=== PATIENT | male | born 1980 | race Caucasian/White ===

== ENCOUNTER 2018-04-02 18:23 | Inpatient (IN) | payer SELFPAY ==
[~2018-04-02] VITALS: Ht 177.8 cm; Wt 88.5 kg
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
[2018-04-02] MEDS ORDERED: HYDROCODONE/APAP 10MG-325MG TAB PO ONE (18:45)
[2018-04-02] MEDS ORDERED: KETOROLAC TROMETHAMINE 30 MG/ML VIAL IV STA (18:45)
[2018-04-02] MEDS ORDERED: ONDANSETRON HCL INJ 2 MG/ML VIAL IV STA (19:43)
[2018-04-02] MEDS ORDERED: CLINDAMYCIN PHOS 900MG/ D5W 50 50 ML IV STA (19:43)
[2018-04-02] MEDS ORDERED: HYDROMORPHONE 2MG/ML INJ IV ONE (19:45)
[2018-04-02] MEDS ORDERED: ONDANSETRON HCL INJ 2 MG/ML VIAL IV PRN (20:00)
[2018-04-02 20:10] LABS: BASOPHILS # (AUTO) 0.1 (0.0-0.1); BASOPHILS % 0.3 % (0.0-1.0); EOSINOPHILS # (AUTO) 0.3 (0.0-0.4); EOSINOPHILS % 1.3 % (0.0-6.0); HEMATOCRIT 41.3 % (38.2-49.6); HEMOGLOBIN 14.4 g/dL (14.0-18.0); LYMPHOCYTES # (AUTO) 2.3 (1.0-3.2); LYMPHOCYTES % 10.8 % (18.0-39.1); MEAN CORPUSCULAR HEMOGLOBIN 30.3 pg (28-32); MEAN CORPUSCULAR HGB CONC 34.9 g/dL (31-35); MEAN CORPUSCULAR VOLUME 86.9 fL (81-99); MONOCYTES # (AUTO) 1.6 (0.2-0.8); MONOCYTES % 7.3 % (4.4-11.3); NEUTROPHILS # (AUTO) 17.2 (2.1-6.9); NEUTROPHILS % 79.3 % (38.7-80.0); PLATELET COUNT 439 x10e3/uL (140-360); RED BLOOD COUNT 4.75 x10e6/uL (4.3-5.7); RED CELL DISTRIBUTION WIDTH 13.2 % (11.7-14.4)
[2018-04-02] MEDS: ACETAMINOPHEN 325 MG TAB PO PRN (20:15)
[2018-04-02] MEDS ORDERED: no home meds (20:17)
[2018-04-02 20:21] LABS: INR 1.19; PROTHROMBIN TIME 14.2 seconds (11.9-14.5)
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
[2018-04-02 20:22] LABS: PARTIAL THROMBOPLASTIN TIME 34.1 seconds (23.8-35.5)
[2018-04-02] MEDS: VANCOMYCIN 1GM/NS 250 ML 250 ML IV SCH (20:24)
[2018-04-02] MEDS: SODIUM CHLORIDE 0.9% 1000ML 1,000 ML IV SCH (20:24)
[2018-04-02 20:30] LABS: ALANINE AMINOTRANSFERASE 44 IU/L (0-55); ALBUMIN 2.6 g/dL (3.5-5.0); ALBUMIN/GLOBULIN RATIO 0.5 (0.8-2.0); ALKALINE PHOSPHATASE 277 IU/L (40-150); ANION GAP 18.4 mmol/L (8-16); BLOOD UREA NITROGEN 13 mg/dL (7-26); BUN/CREATININE RATIO 12 (6-25); CALCIUM 10.4 mg/dL (8.4-10.2); CARBON DIOXIDE 25 mmol/L (22-29); CHLORIDE 94 mmol/L (98-107); CREATININE, SERUM 1.05 mg/dL (0.72-1.25); EST GLOMERULAR FILTRATION RATE > 60 ML/MIN (60-); GLUCOSE 178 mg/dL (74-118); POTASSIUM 3.4 mmol/L (3.5-5.1); SODIUM 134 mmol/L (136-145)
[2018-04-02 21:17] LABS: EOSINOPHILS % (MANUAL) 1 % (0-7); LYMPHOCYTES % (MANUAL) 8 % (19-48); MONOCYTES % (MANUAL) 7 % (3.4-9.0); NEUTROPHILS % (MANUAL) 82 % (40-74); PLATELET MORPHOLOGY COMMENT FEW GIANT; RBC MORPHOLOGY COMMENT NORMAL
[2018-04-02 21:18] LABS: PLATELET ESTIMATE SLIGHTLY INCREASED
[2018-04-02] MEDS ORDERED: IOPAMIDOL 370 MG/ML 200 ML INFUS..BTL INJ ONE (22:40)
[2018-04-02] MEDS ORDERED: SODIUM CHLORIDE 0.9% 50ML 50 ML ONE (22:40)
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
[2018-04-02 23:15] VITALS: BP 143/90
--- NOTE | 2018-04-02 23:15 | Diagnostic Imaging Report ---
EXAM: LOWER LEG LEFT, AP and lateral INDICATION: Fall one week ago, swelling, red to mid calf COMPARISON: None FINDINGS: BONES: No acute fractures. JOINTS: No malalignment. SOFT TISSUES: Soft tissue swelling of the posterior calf. IMPRESSION: Soft tissue swelling of the posterior calf. No evidence of fracture. Signed by: Dr. Rivka Johnson M.D. on 04/02/2018 11:12 PM
[2018-04-02] MEDS: HYDROMORPHONE 1MG/1ML INJ IV PRN (23:30)
[2018-04-03] VITALS (9 sets, daily range): BP systolic 127–145; BP diastolic 76–94
[2018-04-03] MEDS: ACETAMINOPHEN 325 MG TAB PO PRN ×2 (01:05→05:27)
[2018-04-03] MEDS: HYDROMORPHONE 1MG/1ML INJ IV PRN ×7 (03:46→23:05)
[2018-04-03] MEDS: ACETAMINOPHEN 1000 MG/100 ML IV PRN ×3 (05:53→21:52)
[2018-04-03] MEDS: SODIUM CHLORIDE 0.9% 1000ML 1,000 ML IV SCH ×4 (06:09→19:50)
[2018-04-03 06:11] LABS: BASOPHILS # (AUTO) 0.1 (0.0-0.1); BASOPHILS % 0.4 % (0.0-1.0); EOSINOPHILS # (AUTO) 0.3 (0.0-0.4); EOSINOPHILS % 1.3 % (0.0-6.0); HEMATOCRIT 35.7 % (38.2-49.6); HEMOGLOBIN 12.6 g/dL (14.0-18.0); LYMPHOCYTES # (AUTO) 1.9 (1.0-3.2); LYMPHOCYTES % 9.6 % (18.0-39.1); MEAN CORPUSCULAR HEMOGLOBIN 30.8 pg (28-32); MEAN CORPUSCULAR HGB CONC 35.3 g/dL (31-35); MEAN CORPUSCULAR VOLUME 87.3 fL (81-99); MONOCYTES # (AUTO) 2.2 (0.2-0.8); MONOCYTES % 11.4 % (4.4-11.3); NEUTROPHILS % 76.2 % (38.7-80.0); PLATELET COUNT 398 x10e3/uL (140-360); RED BLOOD COUNT 4.09 x10e6/uL (4.3-5.7); RED CELL DISTRIBUTION WIDTH 13.3 % (11.7-14.4)
[2018-04-03 06:43] LABS: ANION GAP 14.5 mmol/L (8-16); BLOOD UREA NITROGEN 12 mg/dL (7-26); BUN/CREATININE RATIO 15 (6-25); CALCIUM 9.4 mg/dL (8.4-10.2); CARBON DIOXIDE 26 mmol/L (22-29); CHLORIDE 98 mmol/L (98-107); EST GLOMERULAR FILTRATION RATE > 60 ML/MIN (60-); GLUCOSE 128 mg/dL (74-118); POTASSIUM 3.5 mmol/L (3.5-5.1); SODIUM 135 mmol/L (136-145)
[2018-04-03] MEDS: VANCOMYCIN 1GM/NS 250 ML 250 ML IV SCH ×2 (07:35→20:13)
[2018-04-03 08:09] LABS: EOSINOPHILS % (MANUAL) 1 % (0-7); LYMPHOCYTES % (MANUAL) 10 % (19-48); MONOCYTES % (MANUAL) 10 % (3.4-9.0); NEUTROPHILS % (MANUAL) 78 % (40-74)
[2018-04-03 08:10] LABS: ANISOCYTOSIS SLIGHT; PLATELET ESTIMATE ADEQUATE; RBC MORPHOLOGY COMMENT NORMAL; TOXIC GRANULATION SLIGHT
[2018-04-03 08:12] LABS: PLATELET MORPHOLOGY COMMENT FEW LARGE
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
[2018-04-03] MEDS: CEFEPIME HCL 2 GM VIAL IV SCH (16:30)
[2018-04-04] VITALS (8 sets, daily range): BP systolic 130–156; BP diastolic 71–108
[2018-04-04] MEDS: SODIUM CHLORIDE 0.9% 1000ML 1,000 ML IV SCH ×3 (02:20→19:50)
[2018-04-04] MEDS: HYDROMORPHONE 1MG/1ML INJ IV PRN ×2 (02:21→05:20)
[2018-04-04] MEDS: CEFEPIME HCL 2 GM VIAL IV SCH ×2 (04:35→15:30)
[2018-04-04] MEDS: ACETAMINOPHEN 1000 MG/100 ML IV PRN (05:13)
[2018-04-04 06:34] LABS: BASOPHILS # (AUTO) 0.1 (0.0-0.1); BASOPHILS % 0.4 % (0.0-1.0); EOSINOPHILS # (AUTO) 0.2 (0.0-0.4); EOSINOPHILS % 1.3 % (0.0-6.0); HEMATOCRIT 34.5 % (38.2-49.6); HEMOGLOBIN 11.7 g/dL (14.0-18.0); LYMPHOCYTES # (AUTO) 2.1 (1.0-3.2); LYMPHOCYTES % 11.5 % (18.0-39.1); MEAN CORPUSCULAR HEMOGLOBIN 30.3 pg (28-32); MEAN CORPUSCULAR HGB CONC 33.9 g/dL (31-35); MEAN CORPUSCULAR VOLUME 89.4 fL (81-99); MONOCYTES # (AUTO) 1.8 (0.2-0.8); MONOCYTES % 10.3 % (4.4-11.3); NEUTROPHILS # (AUTO) 13.3 (2.1-6.9); NEUTROPHILS % 74.9 % (38.7-80.0); PLATELET COUNT 450 x10e3/uL (140-360); RED BLOOD COUNT 3.86 x10e6/uL (4.3-5.7); RED CELL DISTRIBUTION WIDTH 13.5 % (11.7-14.4)
[2018-04-04 07:03] LABS: ALANINE AMINOTRANSFERASE 46 IU/L (0-55); ALBUMIN/GLOBULIN RATIO 0.5 (0.8-2.0); ALKALINE PHOSPHATASE 295 IU/L (40-150); ANION GAP 13.4 mmol/L (8-16); BLOOD UREA NITROGEN 8 mg/dL (7-26); BUN/CREATININE RATIO 10 (6-25); CARBON DIOXIDE 26 mmol/L (22-29); CHLORIDE 100 mmol/L (98-107); CREATININE, SERUM 0.77 mg/dL (0.72-1.25); EST GLOMERULAR FILTRATION RATE > 60 ML/MIN (60-); GLUCOSE 106 mg/dL (74-118); POTASSIUM 3.4 mmol/L (3.5-5.1); SODIUM 136 mmol/L (136-145)
[2018-04-04] MEDS ORDERED: POTASSIUM CHLORIDE 20 MEQ TAB CR PO STA (07:36)
[2018-04-04] MEDS: VANCOMYCIN 1GM/NS 250 ML 250 ML IV SCH (08:07)
[2018-04-04] MEDS: MORPHINE SULFATE 2 MG/ML SYR IV PRN ×5 (08:07→21:32)
[2018-04-04 10:30] LABS: EOSINOPHILS % (MANUAL) 1 % (0-7); LYMPHOCYTES % (MANUAL) 13 % (19-48); MONOCYTES % (MANUAL) 9 % (3.4-9.0); MYELOCYTES % (MANUAL) 2 % (0-0); NEUTROPHILS % (MANUAL) 73 % (40-74)
[2018-04-04 10:31] LABS: ANISOCYTOSIS SLIGHT; PLATELET ESTIMATE ADEQUATE; PLATELET MORPHOLOGY COMMENT NORMAL; RBC MORPHOLOGY COMMENT NORMAL; TOXIC GRANULATION SLIGHT
[2018-04-04] MEDS ORDERED: DEXAMETHASONE SOD PHOS INJ 4 MG/ML VIAL ONE (12:56)
[2018-04-04] MEDS ORDERED: PROPOFOL IV EMULSION 10 MG/ML 20 ML VIAL ONE (12:56)
[2018-04-04] MEDS ORDERED: ONDANSETRON HCL INJ 2 MG/ML VIAL ONE (12:56)
[2018-04-04] MEDS ORDERED: SEVOFLURANE INHAL SOLN 250 ML PEN BTL ONE (12:56)
[2018-04-04] MEDS ORDERED: LIDOCAINE HCL 2% LOCAL INJ 5 ML SDV VIAL INJ ONE (12:56)
[2018-04-04] MEDS ORDERED: FENTANYL CITRATE/PF 100MCG/2 ML INJ ONE ×2 (13:11→16:52)
[2018-04-04] MEDS ORDERED: VANCOMYCIN HCL 1.5 GM in SODIUM CHLORIDE 0.9% 250ML 300 ML IV SCH (17:00)
--- NOTE | 2018-04-04 17:14 | Operative Report ---
DATE OF PROCEDURE: April 04, 2018 PREOPERATIVE DIAGNOSIS: Deep abscess left leg. POSTOPERATIVE DIAGNOSIS: Deep abscess left leg with probable osteomyelitis left leg. PROCEDURE: Incision and drainage of deep abscess left leg. CTRS: None. ANESTHESIA: General. INDICATIONS AND FINDINGS: The patient is a 38-year-old male with the complaints of fever with pain and swelling of the left leg. At surgery there was deep abscess running along the posterior medial aspect of the left tibia with abscess containing about 60 mL of purulent fluid. There was also noted to be cortical erosion of the tibia. TECHNIQUE: After adequate general anesthesia, patient in the supine position, the left leg was prepped and draped in sterile fashion with Braymer solution. On the medial aspect of the leg adjacent to the tibia, an incision was made and carried down to the subcutaneous tissue. The saphenous vein was over the area of swelling, and this was divided and ligated with 2-0 silk. The incision was then carried deeper along the bone, and the abscess cavity was entered. This was deep within the leg beneath the muscle. Approximately 60 mL of purulent fluid was drained. A sample was taken for culture and sensitivity. The abscess cavity was irrigated. All the purulent fluid was drained. Loculations were broken up. There was noted to be cortical erosion of the bone. The abscess cavity was irrigated further and then packed with 1/2 inch iodoform gauze and a sterile dressing applied. The patient tolerated the procedure well. Estimated blood loss was 40 mL. There were no complications. All counts were correct. The patient was taken to the recovery room in satisfactory condition. Job#: [id number] EV cc:MD UTE PARTIDA MD
[2018-04-04] MEDS: HYDROCODONE/APAP 10MG-325MG TAB PO PRN ×2 (17:36→22:41)
[2018-04-04] MEDS: VANCOMYCIN HCL 1.5 GM in SODIUM CHLORIDE 0.9% 250ML 300 ML IV SCH (21:32)
[2018-04-05] VITALS (7 sets, daily range): BP systolic 128–145; BP diastolic 76–97
[2018-04-05] MEDS: SODIUM CHLORIDE 0.9% 1000ML 1,000 ML IV SCH ×3 (00:58→20:32)
[2018-04-05] MEDS: MORPHINE SULFATE 2 MG/ML SYR IV PRN ×4 (00:59→21:30)
[2018-04-05] MEDS: CEFEPIME HCL 2 GM VIAL IV SCH ×2 (04:27→16:00)
[2018-04-05 06:26] LABS: BASOPHILS # (AUTO) 0.1 (0.0-0.1); BASOPHILS % 0.4 % (0.0-1.0); EOSINOPHILS % 0.1 % (0.0-6.0); HEMATOCRIT 34.3 % (38.2-49.6); HEMOGLOBIN 11.9 g/dL (14.0-18.0); LYMPHOCYTES # (AUTO) 1.7 (1.0-3.2); LYMPHOCYTES % 8.9 % (18.0-39.1); MEAN CORPUSCULAR HEMOGLOBIN 30.4 pg (28-32); MEAN CORPUSCULAR HGB CONC 34.7 g/dL (31-35); MEAN CORPUSCULAR VOLUME 87.5 fL (81-99); MONOCYTES # (AUTO) 1.4 (0.2-0.8); NEUTROPHILS # (AUTO) 15.8 (2.1-6.9); NEUTROPHILS % 81.6 % (38.7-80.0); PLATELET COUNT 486 x10e3/uL (140-360); RED BLOOD COUNT 3.92 x10e6/uL (4.3-5.7); RED CELL DISTRIBUTION WIDTH 13.2 % (11.7-14.4)
[2018-04-05 06:36] LABS: ANION GAP 15.3 mmol/L (8-16); BLOOD UREA NITROGEN 11 mg/dL (7-26); BUN/CREATININE RATIO 15 (6-25); CALCIUM 9.6 mg/dL (8.4-10.2); CARBON DIOXIDE 25 mmol/L (22-29); CHLORIDE 103 mmol/L (98-107); CREATININE, SERUM 0.71 mg/dL (0.72-1.25); EST GLOMERULAR FILTRATION RATE > 60 ML/MIN (60-); GLUCOSE 134 mg/dL (74-118); MAGNESIUM 2.9 MG/DL (1.3-2.1); POTASSIUM 4.3 mmol/L (3.5-5.1); SODIUM 139 mmol/L (136-145)
[2018-04-05] MEDS ORDERED: POTASSIUM CHLORIDE 20MEQ/100ML 100 ML IV ONE ×4 (07:30→11:15)
[2018-04-05] MEDS: VANCOMYCIN HCL 1.5 GM in SODIUM CHLORIDE 0.9% 250ML 300 ML IV SCH ×2 (09:00→20:32)
[2018-04-05] MEDS: HYDROCODONE/APAP 10MG-325MG TAB PO PRN ×2 (13:20→22:48)
[2018-04-05] MEDS ORDERED: SODIUM CHLORIDE 0.9% 1000ML 1,000 ML ONE (20:11)
[2018-04-05] MEDS: NICOTINE 14 MG/EA PATCH TOP SCH (20:32)
[2018-04-05] MEDS: ZOLPIDEM TARTRATE 5 MG TAB PO PRN (22:48)
[2018-04-05] MEDS: ACETAMINOPHEN 1000 MG/100 ML IV PRN (23:52)
[2018-04-06] VITALS (7 sets, daily range): BP systolic 126–160; BP diastolic 73–106
[2018-04-06] MEDS: MORPHINE SULFATE 2 MG/ML SYR IV PRN ×2 (01:46→05:13)
[2018-04-06] MEDS: NICOTINE 14 MG/EA PATCH TOP SCH ×2 (01:48→10:00)
[2018-04-06] MEDS: CEFEPIME HCL 2 GM VIAL IV SCH ×2 (05:13→16:58)
[2018-04-06] MEDS: SODIUM CHLORIDE 0.9% 1000ML 1,000 ML IV SCH ×3 (05:13→19:50)
[2018-04-06] MEDS: HYDROCODONE/APAP 10MG-325MG TAB PO PRN (05:24)
[2018-04-06] MEDS: KETOROLAC TROMETHAMINE 30 MG/ML VIAL IV PRN (05:59)
[2018-04-06 06:47] LABS: BASOPHILS # (AUTO) 0.1 (0.0-0.1); BASOPHILS % 0.5 % (0.0-1.0); EOSINOPHILS # (AUTO) 0.2 (0.0-0.4); EOSINOPHILS % 1.3 % (0.0-6.0); HEMOGLOBIN 11.5 g/dL (14.0-18.0); LYMPHOCYTES # (AUTO) 3.8 (1.0-3.2); LYMPHOCYTES % 22.9 % (18.0-39.1); MEAN CORPUSCULAR HEMOGLOBIN 30.3 pg (28-32); MEAN CORPUSCULAR HGB CONC 34.8 g/dL (31-35); MEAN CORPUSCULAR VOLUME 86.8 fL (81-99); MONOCYTES # (AUTO) 1.3 (0.2-0.8); MONOCYTES % 7.7 % (4.4-11.3); NEUTROPHILS # (AUTO) 10.7 (2.1-6.9); NEUTROPHILS % 65.2 % (38.7-80.0); PLATELET COUNT 530 x10e3/uL (140-360); RED CELL DISTRIBUTION WIDTH 13.4 % (11.7-14.4)
[2018-04-06 07:07] LABS: ALANINE AMINOTRANSFERASE 104 IU/L (0-55); ALBUMIN 2.2 g/dL (3.5-5.0); ALBUMIN/GLOBULIN RATIO 0.5 (0.8-2.0); ALKALINE PHOSPHATASE 218 IU/L (40-150); ANION GAP 14.9 mmol/L (8-16); BLOOD UREA NITROGEN 14 mg/dL (7-26); BUN/CREATININE RATIO 19 (6-25); CALCIUM 9.3 mg/dL (8.4-10.2); CARBON DIOXIDE 25 mmol/L (22-29); CHLORIDE 104 mmol/L (98-107); CREATININE, SERUM 0.74 mg/dL (0.72-1.25); EST GLOMERULAR FILTRATION RATE > 60 ML/MIN (60-); GLUCOSE 98 mg/dL (74-118); POTASSIUM 3.9 mmol/L (3.5-5.1); SODIUM 140 mmol/L (136-145)
[2018-04-06] MEDS: HYDROMORPHONE 2MG/ML INJ IV PRN ×2 (08:30→11:35)
[2018-04-06 08:32] LABS: EOSINOPHILS % (MANUAL) 3 % (0-7); LYMPHOCYTES % (MANUAL) 20 % (19-48); MONOCYTES % (MANUAL) 6 % (3.4-9.0); NEUTROPHILS % (MANUAL) 70 % (40-74); PLATELET ESTIMATE MODERATELY INCREASED; PLATELET MORPHOLOGY COMMENT NORMAL; RBC MORPHOLOGY COMMENT NORMAL
[2018-04-06] MEDS: GABAPENTIN 300 MG CAP PO SCH ×3 (09:32→20:44)
[2018-04-06] MEDS: VANCOMYCIN HCL 1.5 GM in SODIUM CHLORIDE 0.9% 250ML 300 ML IV SCH ×2 (09:52→21:00)
[2018-04-06] MEDS: HYDROMORPHONE 1MG/1ML INJ IV PRN ×3 (17:25→23:58)
[2018-04-06] MEDS ORDERED: VANCOMYCIN 1GM/NS 250 ML 500 ML ONE (20:42)
[2018-04-06] MEDS: ZOLPIDEM TARTRATE 5 MG TAB PO PRN (21:30)
[2018-04-07] VITALS (8 sets, daily range): BP systolic 125–146; BP diastolic 79–93
[2018-04-07] MEDS: SODIUM CHLORIDE 0.9% 1000ML 1,000 ML IV SCH ×3 (03:07→20:03)
[2018-04-07] MEDS: HYDROMORPHONE 1MG/1ML INJ IV PRN ×7 (03:09→23:02)
[2018-04-07] MEDS: CEFEPIME HCL 2 GM VIAL IV SCH (04:00)
[2018-04-07] MEDS: KETOROLAC TROMETHAMINE 30 MG/ML VIAL IV PRN ×2 (04:51→21:02)
[2018-04-07 08:06] LABS: BASOPHILS # (AUTO) 0.1 (0.0-0.1); BASOPHILS % 0.8 % (0.0-1.0); EOSINOPHILS # (AUTO) 0.2 (0.0-0.4); EOSINOPHILS % 1.6 % (0.0-6.0); HEMATOCRIT 34.7 % (38.2-49.6); HEMOGLOBIN 11.8 g/dL (14.0-18.0); LYMPHOCYTES # (AUTO) 3.1 (1.0-3.2); LYMPHOCYTES % 21.2 % (18.0-39.1); MEAN CORPUSCULAR HEMOGLOBIN 30.2 pg (28-32); MEAN CORPUSCULAR VOLUME 88.7 fL (81-99); MONOCYTES # (AUTO) 1.1 (0.2-0.8); MONOCYTES % 7.8 % (4.4-11.3); NEUTROPHILS # (AUTO) 9.2 (2.1-6.9); NEUTROPHILS % 63.3 % (38.7-80.0); PLATELET COUNT 574 x10e3/uL (140-360); RED BLOOD COUNT 3.91 x10e6/uL (4.3-5.7); RED CELL DISTRIBUTION WIDTH 13.5 % (11.7-14.4)
[2018-04-07 08:28] LABS: ALANINE AMINOTRANSFERASE 84 IU/L (0-55); ALBUMIN 2.3 g/dL (3.5-5.0); ALBUMIN/GLOBULIN RATIO 0.5 (0.8-2.0); ALKALINE PHOSPHATASE 201 IU/L (40-150); ANION GAP 13.7 mmol/L (8-16); BLOOD UREA NITROGEN 10 mg/dL (7-26); BUN/CREATININE RATIO 12 (6-25); CALCIUM 9.4 mg/dL (8.4-10.2); CARBON DIOXIDE 27 mmol/L (22-29); CHLORIDE 100 mmol/L (98-107); CREATININE, SERUM 0.81 mg/dL (0.72-1.25); EST GLOMERULAR FILTRATION RATE > 60 ML/MIN (60-); GLUCOSE 103 mg/dL (74-118); POTASSIUM 3.7 mmol/L (3.5-5.1); SODIUM 137 mmol/L (136-145)
[2018-04-07] MEDS: VANCOMYCIN HCL 1.5 GM in SODIUM CHLORIDE 0.9% 250ML 300 ML IV SCH (08:53)
[2018-04-07] MEDS: GABAPENTIN 300 MG CAP PO SCH ×3 (08:53→20:03)
[2018-04-07] MEDS: NICOTINE 14 MG/EA PATCH TOP SCH (08:53)
[2018-04-07 11:25] LABS: BAND NEUTROPHILS % (MANUAL) 2 %; EOSINOPHILS % (MANUAL) 1 % (0-7); LYMPHOCYTES % (MANUAL) 21 % (19-48); MONOCYTES % (MANUAL) 6 % (3.4-9.0); NEUTROPHILS % (MANUAL) 70 % (40-74)
[2018-04-07 11:26] LABS: PLATELET ESTIMATE MODERATELY INCREASED; RBC MORPHOLOGY COMMENT NORMAL
[2018-04-07] MEDS: HYDROCODONE/APAP 10MG-325MG TAB PO PRN (12:05)
[2018-04-07] MEDS: ZOLPIDEM TARTRATE 5 MG TAB PO PRN (20:03)
[2018-04-07] MEDS: ACETAMINOPHEN 1000 MG/100 ML IV PRN (21:02)
[2018-04-08] VITALS (7 sets, daily range): BP systolic 118–155; BP diastolic 64–100
[2018-04-08] MEDS: HYDROMORPHONE 1MG/1ML INJ IV PRN ×5 (03:13→23:00)
[2018-04-08] MEDS: ACETAMINOPHEN 1000 MG/100 ML IV PRN (03:14)
[2018-04-08] MEDS: HYDROCODONE/APAP 10MG-325MG TAB PO PRN ×3 (05:52→22:12)
[2018-04-08] MEDS: SODIUM CHLORIDE 0.9% 1000ML 1,000 ML IV SCH ×3 (05:56→22:11)
[2018-04-08] MEDS: NICOTINE 14 MG/EA PATCH TOP SCH (08:50)
[2018-04-08] MEDS: GABAPENTIN 300 MG CAP PO SCH ×3 (08:50→21:00)
[2018-04-08] MEDS ORDERED: CEFTRIAXONE SOD 1 GM VIAL IV SCH (09:00)
[2018-04-08] MEDS: ZOLPIDEM TARTRATE 5 MG TAB PO PRN (22:12)
[2018-04-09] VITALS: BP 123/86
[2018-04-09] MEDS: HYDROMORPHONE 1MG/1ML INJ IV PRN (03:40)
[2018-04-09] MEDS: SODIUM CHLORIDE 0.9% 1000ML 1,000 ML IV SCH (03:50)
[2018-04-09 04:00] VITALS: BP 128/88
[2018-04-09] MEDS: KETOROLAC TROMETHAMINE 30 MG/ML VIAL IV PRN (05:27)
[2018-04-09 06:44] VITALS: BP 128/88
[2018-04-09] MEDS ORDERED: LEVAQUIN500 MG PO (07:25)
[2018-04-09] MEDS ORDERED: NORCO 10-325 T1 EACH PO (07:25)
== END 2018-04-09 08:05 | disposition home or self-care (01) | DRG 478 ==
LOC: ER 18:23 → ERHOLD 19:50 → MED/SURG3 21:12 → OBSVTOIN 04-04 11:21
PROVIDERS: ADMIT Internal Medicine; ATTEND Internal Medicine
PROC: 0Q9 Lower Bones, Drainage (ICD-10-PCS; principal; 2018-04-04 14:30)
DX: M86.8X6 Other osteomyelitis, lower leg (principal); L03.116 Cellulitis of left lower limb; F17.210 Nicotine dependence, cigarettes, uncomplicated; S80.12XA Contusion of left lower leg, initial encounter; W19.XXXA Unspecified fall, initial encounter; Y92.009 Unspecified place in unspecified non-institutional (private) residence as the place of occurrence of the external cause; B95.4 Other streptococcus as the cause of diseases classified elsewhere
CPT/HCPCS: 36415; 73701; 80048; 80053; 80202; 83735; 85025; 85610; 85730; 87071; 87075; 87205; 93971; 96361; 99284; G0378; J0692; J0696; J1100; J1170; J1885; J2001; J2270; J2405; J3370; J7030; J7050; Q9967

== ENCOUNTER 2018-04-15 15:54 | Emergency (ER) | payer SELFPAY ==
[~2018-04-15] VITALS: Ht 177.8 cm; Wt 88.5 kg
[~2018-04-15 15:54] MED LIST: LEVAQUIN500 MG PO; NORCO 10-325 T1 EACH PO; no home meds
[2018-04-15] MEDS ORDERED: SODIUM CHLORIDE 0.9% 1000ML 1,000 ML IV STA (16:30)
[2018-04-15 16:44] LABS: BASOPHILS # (AUTO) 0.1 (0.0-0.1); BASOPHILS % 0.4 % (0.0-1.0); EOSINOPHILS # (AUTO) 0.1 (0.0-0.4); EOSINOPHILS % 0.8 % (0.0-6.0); HEMATOCRIT 40.8 % (38.2-49.6); HEMOGLOBIN 14.1 g/dL (14.0-18.0); LYMPHOCYTES # (AUTO) 2.4 (1.0-3.2); LYMPHOCYTES % 13.2 % (18.0-39.1); MEAN CORPUSCULAR HEMOGLOBIN 30.2 pg (28-32); MEAN CORPUSCULAR HGB CONC 34.6 g/dL (31-35); MEAN CORPUSCULAR VOLUME 87.4 fL (81-99); MONOCYTES # (AUTO) 1.2 (0.2-0.8); MONOCYTES % 6.7 % (4.4-11.3); NEUTROPHILS # (AUTO) 14.1 (2.1-6.9); NEUTROPHILS % 78.3 % (38.7-80.0); PLATELET COUNT 756 x10e3/uL (140-360); RED BLOOD COUNT 4.67 x10e6/uL (4.3-5.7); RED CELL DISTRIBUTION WIDTH 13.3 % (11.7-14.4)
[2018-04-15 16:51] LABS: INR 1.01; PARTIAL THROMBOPLASTIN TIME 29.9 seconds (23.8-35.5); PROTHROMBIN TIME 12.5 seconds (11.9-14.5)
[2018-04-15 16:58] LABS: ALANINE AMINOTRANSFERASE 18 IU/L (0-55); ALBUMIN 3.5 g/dL (3.5-5.0); ALBUMIN/GLOBULIN RATIO 0.7 (0.8-2.0); ALKALINE PHOSPHATASE 131 IU/L (40-150); ANION GAP 15.3 mmol/L (8-16); BLOOD UREA NITROGEN 11 mg/dL (7-26); BUN/CREATININE RATIO 12 (6-25); CALCIUM 10.1 mg/dL (8.4-10.2); CARBON DIOXIDE 24 mmol/L (22-29); CHLORIDE 102 mmol/L (98-107); CREATININE, SERUM 0.95 mg/dL (0.72-1.25); EST GLOMERULAR FILTRATION RATE > 60 ML/MIN (60-); GLUCOSE 99 mg/dL (74-118); POTASSIUM 4.3 mmol/L (3.5-5.1); SODIUM 137 mmol/L (136-145)
[2018-04-15] MEDS ORDERED: SODIUM CHLORIDE 0.9% 1000ML 1,000 ML IV SCH (20:06)
[2018-04-15] MEDS ORDERED: ONDANSETRON HCL INJ 2 MG/ML VIAL IV PRN (20:15)
[2018-04-15] MEDS ORDERED: MORPHINE SULFATE 2 MG/ML SYR IV PRN (20:15)
[2018-04-15] MEDS ORDERED: CHOLESTYRAMINE 4 GM PACKET PO PRN (20:15)
[2018-04-15 21:01] VITALS: BP 116/82
[2018-04-15] MEDS ORDERED: FLAGYL250 MG PO (21:05)
[2018-04-16] MEDS ORDERED: VANCOMYCIN 250MG/5ML ORAL SOLN PO SCH (20:30)
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
--- OUTSIDE RECORDS SUMMARY | 2018-07-24 14:35 | XMS REPORT | Continuity of Care Document ---
Author Author [facility] Organization [facility] Address [address] [place] [address] Phone Unavailable Care Team Providers Care Manager Test Name Role Phone NO, PCP PCP Unavailable Advance Directives Directive Response Recorded Date/Time Does the patient have an advance directive? No 04/02/18 11:11pm If yes, is advance directive on file with [facility]? No 04/02/18 7:51pm If not on file with [facility] will patient provide a copy? Yes 04/02/18 7:51pm Do you have a Directive to Physician? No 04/02/18 7:51pm Do you have a Medical Power of Poundmaster? No 04/02/18 7:51pm Do you have an out of hospital Do Not Resuscitate Order? No 04/02/18 7:51pm Do you have any special needs we should be aware of? No 04/02/18 7:51pm Do you have a support person here with you today? Yes 04/02/18 7:51pm Did patient receive Notice of Privacy Practices? Yes 04/02/18 7:51pm Did patient receive patient rights and responsibilities? Yes 04/02/18 7:52pm Problems No problem information available. Medications Current Home Medications Medication Dose Units Route Directions Days Qty Instructions Start Date Hydrocodone Bit/Acetaminophen ([place] 10-325 Tablet) 1 Each Tablet 1 Tab Oral Every 6 Hours Levofloxacin (Levaquin) 500 Mg Tablet 500 Mg Oral Daily No Home Meds Social History Social History Problem Response Recorded Date/Time Onset Date Status Hx Psychiatric Problems No 04/02/2018 11:11pm Not Applicable Not Applicable Hx Eating Disorder No 04/02/2018 11:11pm Not Applicable Not Applicable Hx Substance Use Disorder No 04/02/2018 11:11pm Not Applicable Not Applicable Hx Depression No 04/02/2018 11:11pm Not Applicable Not Applicable Hx Alcohol Use No 04/02/2018 11:11pm Not Applicable Not Applicable Hx Substance Use Treatment No 04/02/2018 11:11pm Not Applicable Not Applicable Hx Physical Abuse No 04/02/2018 11:11pm Not Applicable Not Applicable Smoking Status Start Date Stop Date Current every day smoker Hospital Discharge Instructions No hospital discharge instruction information available. Plan of Care Discharge Date 04/09/18 8:05am Disposition HOME, SELF-CARE Instructions/Education Provided Cellulitis Prescriptions See Medication Section Additional Instructions/Education follow up with dr oliveira in 3 weeks and patient needs to call and make appointment with his office and to return to ER if worsens regular diet Functional Status Query Response Date Recorded Assistive Devices Axillary Crutches April 02, 2018 11:15pm Ambulation Ability Standby Assistance April 02, 2018 11:15pm Toileting Ability Independent April 08, 2018 1:00pm Allergies, Adverse Reactions, Alerts No known allergies. Immunizations No immunization information available. Vital Signs Acute Vital Signs Vital Response Date/Time Temperature (Fahrenheit) 98.1 degrees F (97.6 - 99.5) 04/09/2018 6:44am Pulse Pulse Rate (adult) 93 bpm (60 - 90) 04/09/2018 6:44am Respiratory Rate 20 bpm (12 - 24) 04/09/2018 6:44am Blood Pressure 128/88 mm Hg 04/09/2018 6:44am Height 5 ft 10 in 04/02/2018 6:37pm Weight 195 lb 04/04/2018 12:47am Body Mass Index 28.0 kg/m^2 04/05/2018 12:45am Results Laboratory Results Test Name Result Units Flags Reference Collection Date/Time Result Date/ Time Comments White Blood Count 14.51 x10e3/uL H 4.8-10.8 04/07/2018 7:55am 2017 8:36am Red Blood Count 3.91 x10e6/uL L 4.3-5.7 04/07/2018 7:55am 04/07/2018 8: 36am Hemoglobin 11.8 g/dL L 14.0-18.0 04/07/2018 7:55am 04/07/2018 8:36am Hematocrit 34.7 % L 38.2-49.6 04/07/2018 7:55am 04/07/2018 8:36am Mean Corpuscular Volume 88.7 fL 81-99 04/07/2018 7:55am 04/07/2018 8: 36am Mean Corpuscular Hemoglobin 30.2 pg 28-32 04/07/2018 7:55am 04/07/2018 8:36am Mean Corpuscular Hemoglobin Concent 34.0 g/dL 31-35 04/07/2018 7:55am 04/07/2018 8:36am Red Cell Distribution Width 13.5 % 11.7-14.4 04/07/2018 7:55am 2017 8:36am Platelet Count 574 x10e3/uL H 140-360 04/07/2018 7:55am 04/07/2018 8: 36am Neutrophils (%) (Auto) 63.3 % 38.7-80.0 04/07/2018 7:55am 04/07/2018 8: 36am Lymphocytes (%) (Auto) 21.2 % 18.0-39.1 04/07/2018 7:55am 04/07/2018 8: 36am Monocytes (%) (Auto) 7.8 % 4.4-11.3 04/07/2018 7:55am 04/07/2018 8: 36am Eosinophils (%) (Auto) 1.6 % 0.0-6.0 04/07/2018 7:55am 04/07/2018 8: 36am Basophils (%) (Auto) 0.8 % 0.0-1.0 04/07/2018 7:55am 04/07/2018 8:36am IM GRANULOCYTES % 5.3 % H 0.0-1.0 04/07/2018 7:55am 04/07/2018 8:36am Neutrophils # (Auto) 9.2 H 2.1-6.9 04/07/2018 7:55am 04/07/2018 8: 36am Lymphocytes # (Auto) 3.1 1.0-3.2 04/07/2018 7:55am 04/07/2018 8:36am Monocytes # (Auto) 1.1 H 0.2-0.8 04/07/2018 7:55am 04/07/2018 8:36am Eosinophils # (Auto) 0.2 0.0-0.4 04/07/2018 7:55am 04/07/2018 8:36am Basophils # (Auto) 0.1 0.0-0.1 04/07/2018 7:55am 04/07/2018 8:36am Absolute Immature Granulocyte (auto 0.77 x10e3/uL H 0-0.1 04/07/2018 7: 55am 04/07/2018 8:36am Differential Total Cells Counted 100 04/07/2018 7:55am 04/07/2018 11:26am Neutrophils % (Manual) 70 % 40-74 04/07/2018 7:55am 04/07/2018 11:26am Band Neutrophils % 2 % 04/07/2018 7:55am 04/07/2018 11:26am Lymphocytes % (Manual) 21 % 19-48 04/07/2018 7:55am 04/07/2018 11:26am Monocytes % (Manual) 6 % 3.4-9.0 04/07/2018 7:55am 04/07/2018 11:26am Eosinophils % (Manual) 1 % 0-7 04/07/2018 7:55am 04/07/2018 11:26am Basophils % (Manual) 1 % 0-1.5 04/06/2018 6:35am 04/06/2018 8:32am Myelocytes % 2 % H 0-0 04/04/2018 5:19am 04/04/2018 10:32am Reactive Lymphocytes 2 04/04/2018 5:19am 04/04/2018 10:32am Platelet Estimate MODERATELY INCREASED 04/07/2018 7:55am 2017 11:26am Platelet Morphology Comment NORMAL 04/06/2018 6:35am 04/06/2018 8: 32am Anisocytosis SLIGHT 04/04/2018 5:19am 04/04/2018 10:32am Toxic Granulation SLIGHT 04/04/2018 5:19am 04/04/2018 10:32am Red Cell Morphology Comment NORMAL 04/07/2018 7:55am 04/07/2018 11: 26am Prothrombin Time 14.2 seconds 11.9-14.5 04/02/2018 8:00pm 04/02/2018 8: 34pm Prothromb Time International Ratio 1.19 04/02/2018 8:00pm 2017 8:34pm Oral Anticoagulant Therapy INR Values: 1. Low Intensity Therapy 1.5 - 2.0 2. Moderate Intensity Therapy 2.0 - 3.0 3. High Intensity Therapy(1) 2.5 - 3.5 4. High Intensity Therapy(2) 3.0 - 4.0 5. Panic Value INR > 5.0 Activated Partial Thromboplast Time 34.1 seconds 23.8-35.5 04/02/2018 8: 00pm 04/02/2018 8:34pm Sodium Level 137 mmol/L 136-145 04/07/2018 7:55am 04/07/2018 8:37am Potassium Level 3.7 mmol/L 3.5-5.1 04/07/2018 7:55am 04/07/2018 8:37am Chloride Level 100 mmol/L 98-107 04/07/2018 7:55am 04/07/2018 8:37am Carbon Dioxide Level 27 mmol/L 22-29 04/07/2018 7:55am 04/07/2018 8: 37am Anion Gap 13.7 mmol/L 8-04/07/2018 7:55am 04/07/2018 8:37am Blood Urea Nitrogen 10 mg/dL 704/07/2018 7:55am 04/07/2018 8:37am Creatinine 0.81 mg/dL 0.72-1.25 04/07/2018 7:55am 04/07/2018 8:37am BUN/Creatinine Ratio 12 6-04/07/2018 7:55am 04/07/2018 8:37am Estimat Glomerular Filtration Rate > 60 ML/MIN 60- 04/07/2018 7:55am 8:37am Ranges were taken from the National Kidney Disease Education Program and the National Kid[employer] Foundation literature. Reference ranges: 60 or greater: Normal 16-59 (for 3 consecutive months): Chronic kidney disease 15 or less: Kidney failure Glucose Level 103 mg/dL 74-118 04/07/2018 7:55am 04/07/2018 8:37am Calcium Level 9.4 mg/dL 8.4-10.2 04/07/2018 7:55am 04/07/2018 8:37am Magnesium Level 2.9 MG/DL H 1.3-2.1 04/05/2018 5:26am 04/05/2018 6:39am Total Bilirubin 0.3 mg/dL 0.2-1.2 04/07/2018 7:55am 04/07/2018 8:37am Aspartate Amino Transf (AST/SGOT) 36 IU/L H 5-34 04/07/2018 7:55am 04/07 8:37am Alanine Aminotransferase (ALT/SGPT) 84 IU/L H 0-55 04/07/2018 7:55am 8:37am Total Protein 6.6 g/dL 6.5-8.1 04/07/2018 7:55am 04/07/2018 8:37am Albumin 2.3 g/dL L 3.5-5.0 04/07/2018 7:55am 04/07/2018 8:37am Globulin 4.3 g/dL H 2.3-3.5 04/07/2018 7:55am 04/07/2018 8:37am Albumin/Globulin Ratio 0.5 L 0.8-2.0 04/07/2018 7:55am 04/07/2018 8: 37am Alkaline Phosphatase 201 IU/L H 40-150 04/07/2018 7:55am 04/07/2018 8: 37am Vancomycin Level Trough 12.4 ug/mL *H 5.0-10.0 04/06/2018 6:35am 2017 9:44am Results called to ELMER ONEILL RN at 0944 on 04/06/18 by Smita Duran. RB OK. Microbiology Results Procedure Source Organism/Result Collection Date/Time Result Date/Time Result Status Wound Culture Leg, Left STREPTOCOCCUS VIRIDANS 04/04/2018 4:33pm 2017 10:50am Final Procedures Procedure Status Date Provider(s) Incision and drainage Completed 04/04/[address] extremity lower w contrast Active 04/02/18 AYLIN SHEPARD MD Encounters Encounter Location Arrival/Admit Date Discharge/Depart Date Attending Provider Discharged Inpatient [facility] 04/04/18 11:21am 8:05am KAMILLA GR MD
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
== END 2018-04-15 21:12 | disposition left against medical advice (07) ==
LOC: ER 15:54
DX: R19.7 Diarrhea, unspecified (principal); R11.0 Nausea; L03.116 Cellulitis of left lower limb; F17.210 Nicotine dependence, cigarettes, uncomplicated
CPT/HCPCS: 36415; 80053; 83605; 85025; 85610; 85730; 87040; 87045; 87493; 93005; 99283; J7030